=== PATIENT | male | born 2005 | race Two or more races ===

== ENCOUNTER 2024-08-10 22:38 | Emergency (ER) | payer MEDICAID, OTHER ==
[~2024-08-10 22:38] MED LIST: AMOX500T3 PO
== END 2024-08-10 23:22 | disposition left against medical advice (07) ==
LOC: ER 22:38
DX: M79.673 Pain in unspecified foot (principal); Z53.21 Procedure and treatment not carried out due to patient leaving prior to being seen by health care provider